=== PATIENT | female | born 1995 | race African-American/Black ===

== ENCOUNTER 2019-06-12 00:28 | Emergency (ER) | payer MEDICAID ==
[~2019-06-12] VITALS: Ht 162.6 cm; Wt 68.5 kg
[2019-06-12 03:24] LABS: CLARITY URINE CLEAR (CLEAR); COLOR URINE YELLOW (YELLOW); KETONES URINE NEGATIVE (NEGATIVE); LEUKOCYTE ESTERASE URINE TRACE (NEGATIVE); NITRITE URINE NEGATIVE (NEGATIVE); OCCULT BLOOD URINE NEGATIVE (NEGATIVE); PROTEIN URINE NEGATIVE (NEGATIVE); SPECIFIC GRAVITY URINE 1.009 (1.005-1.030); UROBILINOGEN URINE 0.2 E.U./dL (0.2-1.0)
[2019-06-12] MEDS ORDERED: LIDOCAINE HCL/PF 1% 10 MG/ML 5ML VIAL IJ ONE (04:45)
[2019-06-12 05:51] VITALS: BP 115/61
== END 2019-06-12 05:52 | disposition home or self-care (01) ==
LOC: ER 00:28
DX: N75.1 Abscess of Bartholin's gland (principal); Z91.010 Allergy to peanuts
CPT/HCPCS: 56420; 81003; 81025; 99283; J3490; Z7610

== ENCOUNTER 2019-06-16 22:34 | Emergency (ER) | payer MEDICAID ==
[~2019-06-16] VITALS: Ht 157.5 cm; Wt 69.0 kg
[2019-06-17 00:53] VITALS: BP 107/65
== END 2019-06-17 02:20 | disposition home or self-care (01) ==
LOC: ER 22:34
DX: N75.0 Cyst of Bartholin's gland (principal)
CPT/HCPCS: 99281

== ENCOUNTER 2020-01-17 13:05 | Emergency (ER) | payer MEDICAID ==
[~2020-01-17] VITALS: Ht 157.5 cm; Wt 76.0 kg
[2020-01-17] MEDS ORDERED: CEFTRIAXONE SODIUM 250 MG/VIAL IM ONE (14:30)
[2020-01-17] MEDS ORDERED: AZITHROMYCIN 500 MG TABLET PO ONE (14:30)
[2020-01-17] MEDS ORDERED: ACETAMINOPHEN 325MG TABLET PO ONE (14:30)
[2020-01-17 14:51] LABS: BASOPHILS % 0.2 % (0.0-2.0); CHLORIDE 109 mEq/L (98-107); EOSINOPHILS % 0.1 % (0.0-5.0); HEMATOCRIT. 38.7 % (36.0-48.0); HEMOGLOBIN. 12.8 g/dL (12.0-16.0); LYMPHOCYTES % 22.2 % (20.0-50.0); MEAN CORPUSCULAR HEMOGLOBIN 31.2 pg (28.0-32.0); MEAN CORPUSCULAR VOLUME 94.4 fL (81.0-99.0); MONOCYTES % 4.8 % (2.0-8.0); NEUTROPHILS % 72.7 % (40.0-76.0); PLATELET 214 x1000/uL (130-400); RED CELL DISTRIBUTION WIDTH 13.7 % (11.6-14.6)
[2020-01-17 15:03] LABS: B-HCG QUANTITATIVE < 1 mIU/mL (<3)
[2020-01-17 15:10] LABS: CLARITY URINE CLOUDY (CLEAR); COLOR URINE YELLOW (YELLOW); KETONES URINE NEGATIVE (NEGATIVE); LEUKOCYTE ESTERASE URINE 3+ (NEGATIVE); NITRITE URINE NEGATIVE (NEGATIVE); OCCULT BLOOD URINE 3+ (NEGATIVE); PH URINE 6.5 (4.5-8.0); PROTEIN URINE 2+ (NEGATIVE); SPECIFIC GRAVITY URINE 1.006 (1.005-1.030); UROBILINOGEN URINE 0.2 E.U./dL (0.2-1.0)
[2020-01-17 16:40] VITALS: BP 120/73
== END 2020-01-17 16:40 | disposition home or self-care (01) ==
LOC: ER 13:05
DX: N30.01 Acute cystitis with hematuria (principal); Z20.2 Contact with and (suspected) exposure to infections with a predominantly sexual mode of transmission
CPT/HCPCS: 36415; 76830; 76856; 80053; 81003; 81025; 84702; 85025; 87077; 87086; 87186; 96372; 99284; J0696